=== PATIENT | female | born 1980 | race Hispanic/Latino ===

== ENCOUNTER 2018-12-26 12:01 | Emergency (ER) | payer OTHER ==
[~2018-12-26 12:01] MED LIST: BUTA-256 PO; PROP1TAB PO
[2018-12-26 13:19] LABS: APPEARANCE,URINE CLOUDY (CLEAR); BILIRUBIN,URINE NEGATIVE (NEGATIVE); COLOR,URINE YELLOW (YELLOW); GLUCOSE, URINE (UA) NEGATIVE (NEGATIVE); KETONES,URINE NEGATIVE (NEGATIVE); LEUKOCYTE ESTERASE ,URINE SMALL (NEGATIVE); NITRATE,URINE NEGATIVE (NEGATIVE); OCCULT BLOOD,URINE MODERATE (NEGATIVE); PROTEIN,URINE 30 mg/dL (NEGATIVE)
[2018-12-26 13:24] LABS: HCG,QUAL RESULT NEGATIVE (NEGATIVE)
[2018-12-26 13:26] LABS: BACTERIA,URINE Moderate /HPF (None Seen); MUCUS,URINE Many LPF (None Seen)
[2018-12-26] MEDS ORDERED: CEPHALEXIN 500 MG CAPSULE ONE (13:39)
[2018-12-26] MEDS ORDERED: IBUPROFEN 800 MG TAB ONE (13:39)
[2018-12-26] MEDS ORDERED: SULFAMETHOX-TMP DS 800/160 TAB ONE (13:39)
== END 2018-12-26 14:51 | disposition home or self-care (01) ==
LOC: EDH 12:01
DX: L03.317 Cellulitis of buttock (principal); R50.9 Fever, unspecified; G43.909 Migraine, unspecified, not intractable, without status migrainosus
CPT/HCPCS: 81001; 81025